=== PATIENT | male | born 2000 | race Caucasian/White ===

== ENCOUNTER 2020-10-29 08:40 | Emergency (ER) | payer OTHER, SELFPAY ==
[2020-10-29 08:49] VITALS: BP 119/72; PULSE 93; RESP 18; TEMP 36.8; O2SAT 100
--- NOTE | 2020-10-29 09:30 | ED.EAR ---
HPI - Ear Problem General Chief complaint: Ear Stated complaint: left ear can't hear Source: patient Mode of arrival: ambulatory Limitations: no limitations History of Present Illness HPI Narrative: Patient is a 20-year-old male who presents complaining of left ear decreased hearing this a.m. He reports mild pain. He denies significant medical history. Denies use of all [id number] medications prior to arrival. MD Complaint: decreased hearing Related Data Home Medications Medication Instructions Recorded Confirmed No Home Medications 10/29/20 10/29/20 Allergies Allergy/AdvReac Type Severity Reaction Status Date / Time No Known Allergies Allergy Verified 10/29/20 09:24 Review of Systems Review of Systems: CONSTITUTIONAL: Denies fever, chills, or sweats. EYES: Denies visual changes, redness, or discharge. ENT: Reports decreased hearing left ear CARDIOVASCULAR: Denies chest pain, palpitations, or edema. RESPIRATORY: Denies cough or dyspnea. GASTROINTESTINAL: Denies abdominal pain, nausea, vomiting, or diarrhea. GENITOURINARY: Denies dysuria or hematuria. SKIN: Denies rash or itching. MUSCULOSKELETAL: Denies back pain, joint pain, or myalgia. NEUROLOGIC: Denies headache, numbness, dizziness, or weakness. PSYCHIATRIC: Denies anxiety or depression. PMFSH Past Medical History Medical History No significant past medical history Surgical History Surgical History No significant past surgical history Family History Family History Other No significant family history Social History Social History (Updated 10/29/20 @ 09:33 by ALEXANDR Virgen) Smoking status: Never smoker Alcohol intake: current Alcohol use details: Occasional Substance use: never Living arrangements: with family Comments At the time of signature, I have reviewed and agree with nursing past medical, surgical, social, and family history unless otherwise noted. Please see nursing chart for further information. There is no relevant family history pertinent to the presenting complaint. Exam Narrative: GENERAL: Well-appearing, well-nourished, and in no acute distress. HEAD: Normocephalic, atraumatic. EYES: EOMI. No redness or drainage. Conjunctiva are normal. ENT: Mucous membranes pink and moist. Cerumen impaction bilateral ears, TM not visualized at this time. CHEST: No respiratory distress. HEART: Regular rate and rhythm. EXTREMITIES: Normal range of motion. No edema. SKIN: Warm, dry, no rash. NEURO: No focal deficits. Alert and oriented x3. Gait steady. PSYCH: Normal affect. No signs of depression or anxiety. Course Vital Signs Vital signs: Vital Signs Temperature 36.8 C 10/29/20 08:49 Pulse Rate 93 10/29/20 08:49 Respiratory Rate 18 10/29/20 08:49 Blood Pressure 119/72 10/29/20 08:49 Pulse Oximetry 100 10/29/20 08:49 Temperature 36.8 C 10/29/20 08:49 Pulse Rate 93 10/29/20 08:49 Respiratory Rate 18 10/29/20 08:49 Blood Pressure 119/72 10/29/20 08:49 Pulse Oximetry 100 10/29/20 08:49 Reviewed. Procedures Ear Wax Removal Both Ears: Results: Re-examined: cerumen removed completely TM Examination: TM(s) intact, normal appearance Ear Canal Exam: atraumatic Patient Tolerated Procedure: well Complications: no problems Technique: ear canal irrigated and ear canal curetted Medical Decision Making MDM Narrative Medical decision making narrative: Patient has cerumen impaction lateral ears. Ears flushed and cleaned. Patient reports he is able to hear at this time. TM intact bilaterally. Instruct patient on ear cleaning as well as follow-up with PCP. Differential Diagnosis Differential Diagnosis: Cerumen impaction, otitis media, otitis externa, Vital Signs Vital Sig
== END 2020-10-29 10:15 | disposition home or self-care (01) ==
PROVIDERS: Emergency Provider Nurse Practitioner
DX: H61.23 Impacted cerumen, bilateral (principal)
CPT/HCPCS: 69210; 99212; G0463

== ENCOUNTER 2024-05-08 16:49 | Emergency (ER) | payer OTHER, SELFPAY ==
[2024-05-08 16:54] VITALS: BP 133/91; PULSE 110; RESP 20; TEMP 37.2; O2SAT 96
--- NOTE | 2024-05-08 16:55 | ED.EAR ---
HPI - Ear Problem General Chief complaint: Ear Stated complaint: left ear hard to hear Source: patient Mode of arrival: ambulatory Limitations: no limitations History of Present Illness HPI Narrative: 24-year-old male presented for complaint of decreased hearing from the left ear. Onset when he woke this morning. reports pain to the left ear only when yawning. Endorses some white noise sounds and feels like the ear needs to pop.. denies nasal congestion, dizziness, nausea vomiting, diarrhea, fevers or chills. he used hot water from the shower into the ear prior to arrival. MD Complaint: ear pain Related Data Home Medications ?Medication ?Instructions ?Recorded ?Confirmed ?Last Taken ?Type No Home Medications 10/29/20 05/08/24 Unknown History Allergies Allergy/AdvReac Type Severity Reaction Status Date / Time No Known Allergies Allergy Verified 05/08/24 16:59 Review of Systems Review of Systems: CONSTITUTIONAL: Denies malaise, chills, or fever. EYES: Denies visual changes, redness, or discharge. ENT: Denies rhinorrhea, congestion, sinus pain, and sore throat. Reports Left ear decreased hearing CARDIOVASCULAR: Denies chest pain, palpitations, or edema. RESPIRATORY: Denies cough or dyspnea. GASTROINTESTINAL: Denies abdominal pain, nausea, vomiting, diarrhea SKIN: Denies rash or itching. MUSCULOSKELETAL: Denies myalgia. NEUROLOGIC: Denies headache. All systems reviewed & are unremarkable except as noted in HPI and below PMFSH Past Medical History Medical History No significant past medical history Surgical History Surgical History No significant past surgical history Family History Family History Other No significant family history Social History Social History (Updated 10/29/20 @ 09:33 by Sabrina Yuan, ALEXANDR) Smoking status: Never smoker Alcohol intake: current Alcohol use details: Occasional Substance use: never Living arrangements: with family Comments At time of signature, agree with nursing past medical, surgical, social and family history. There is no relevant family history pertinent to the presenting complaint Exam Narrative: GENERAL: Well-appearing EYES: PERRLA, conjunctivae clear ENT: Nares clear. Mucous membranes moist. right TM pearly [place] with dull light reflex; left TM unable to visualize due to excess cerumen no tragal tenderness. Oropharynx not erythematous without lesions. CHEST: Unlabored, even, speaks in full sentences. HEART: Regular rate and rhythm. SKIN: Warm, dry, no rash. NEURO: Alert and oriented x3. PSYCH: Normal mood and affect Course Course Emergency Course: Patient is aware of diagnosis, understands and agrees to treatment plan. Anticipatory guidance given. Patient agrees to follow-up as directed and is aware of reasons to seek care at the emergency department. Portions of this record may have been created with voice recognition software Level of Care: Express Care Visit Vital Signs Vital signs: Vital Signs Temperature 98.9 F 05/08/24 16:54 Pulse Rate 110 H 05/08/24 16:54 Respiratory Rate 20 05/08/24 16:54 Blood Pressure 133/91 H 05/08/24 16:54 Pulse Oximetry 96 05/08/24 16:54 Oxygen Delivery Room Air 05/08/24 16:54 Temperature 98.9 F 05/08/24 16:54 Pulse Rate 110 H 05/08/24 16:54 Respiratory Rate 20 05/08/24 16:54 Blood Pressure 133/91 H 05/08/24 16:54 Pulse Oximetry 96 05/08/24 16:54 Oxygen Delivery Room Air 05/08/24 16:54 Reviewed Procedures Ear Wax Removal Left Ear: Ear Wax Removal Date: 05/08/24 Cerumenolytic Used: other ( Equal parts warm water and hydrogen peroxide) Results: Re-examined: some cerumen remains (near TM) TM Examination: other (unable to fully visualize) Ear Canal Exam: atraumatic Patient Tolerated Procedure: well and no complications Technique: ear canal irrigated and ear canal curetted Additional Comments: Large amount of cerumen removed, pt tolerated well however he continues to report muffled hearing with slight improvement. Advised home treatment and f/u as the remaining cerumen is against the TM causing discomfort with attempts at removal. Medical Decision Making MDM Narrative Medical decision making narrative: Large amount of cerumen removed, he continues to report muffled hearing with slight improvement. Advised home treatment and f/u as the remaining cerumen is against the TM causing discomfort with attempts at removal. Advised supportive measures and signs/symptoms to go to the ER. Patient is appropriate for outpatient treatment and follow-up. Differential Diagnosis Differential Diagnosis: Coronavirus, strep pharyngitis, allergic rhinitis, upper respiratory tract infection, sinusitis, rhinosinusitis, nasopharyngitis, viral pharyngitis, otitis media, otitis externa, eustachian tube dysfunction, foreign body, cerumen impaction. Vital Signs Vital Signs: Vital Signs Temperature 98.9 F 05/08/24 16:54 Pulse Rate 110 H 05/08/24 16:54 Respiratory Rate 20 05/08/24 16:54 Blood Pressure 133/91 H 05/08/24 16:54 Pulse Oximetry 96 05/08/24 16:54 Oxygen Delivery Room Air 05/08/24 16:54 Temperature 98.9 F 05/08/24 16:54 Pulse Rate 110 H 05/08/24 16:54 Respiratory Rate 20 05/08/24 16:54 Blood Pressure 133/91 H 05/08/24 16:54 Pulse Oximetry 96 05/08/24 16:54 Oxygen Delivery Room Air 05/08/24 16:54 Discharge Plan Discharge Clinical Impression: Impacted cerumen of left ear Patient Disposition: Home, Self-Care Condition: Stable Instructions: Antibiotic Form, How to Use Ear Drops (ED) Additional Instructions: use an earwax softening agent such as [id number] Debrox or a mixture of 1 part hydrogen peroxide in 1 part warm water several times weekly to keep your earwax soft and prevent further impaction. Please follow-up with your primary care doctor if you develop new symptoms. If you have urgent concerns please go to the ER. Patient Language: Singaporean Prescriptions: No Action No Home Medications Follow-up/Referrals: Reveles,Ellen Hernandez APN [Primary Care Provider] - Time of Disposition: 17:45
== END 2024-05-08 17:57 | disposition home or self-care (01) ==
PROVIDERS: Emergency Provider Nurse Practitioner Family; PCP Nurse Practitioner Family
DX: H61.22 Impacted cerumen, left ear (principal)
CPT/HCPCS: 69210; 99212; G0463